=== PATIENT | female | born 1990 | race Caucasian/White ===

== ENCOUNTER 2016-07-02 19:18 | Emergency (ER) | payer OTHER ==
[~2016-07-02] VITALS: Ht 167.6 cm; Wt 103.2 kg
[~2016-07-02 19:18] MED LIST: IBUP800T23 PO; Z.0.BCPILL PO
[2016-07-02 19:38] VITALS: BP 130/77; PULSE 114; RESP 22; TEMP 99.5; O2SAT 98
[2016-07-02] MEDS ORDERED: CELE20TA PO (22:32)
[2016-07-02] MEDS ORDERED: SPRI28TA PO (22:32)
[2016-07-02 22:33] VITALS: BP 128/78; PULSE 101; RESP 18; TEMP 99.5; O2SAT 97
--- NOTE | 2016-07-02 22:44 | PD ---
HPI Chief Complaint: Cold / Flu Symptoms Time Seen by Provider: 22:37 Travel History International Travel<30 days: No Contact w/Intl Traveler<30days: No Traveled to known affect area: No History of Present Illness HPI This 26-year-old female says she is having cough and congestion. She says she aches all over and just feels bad in general. She did not get a flu shot this year she had a persistent cough. She finds it hard to breathe at times. She has no history of asthma. She does not smoke cigarettes [facility] Past Medical History Diminished Hearing: No Immunizations Current: Yes (UTD) Tetanus Vaccination: < 5 Years Influenza Vaccination: No ?: Not LMP: TWO MONTHS AGO- ONCE EVERY THREE MONTHS : 1 Para: 1 Past Surgical History Tympanostomy Tube: Yes Social History Alcohol Use: No (DENIES) Tobacco Use: No Substance Use: No Allergies-Medications (Allergen,Severity, Reaction): Coded Allergies: Zithromax (Verified Allergy, Severe, Rash, 07/02/16) Reported Meds & Prescriptions Reported Meds & Active Scripts Active Reported Sprintec 28 (Norgestimate-Ethinyl Estradiol) 0.25-35 mg-Mcg Tab 1 Tab PO DAILY Celexa (Citalopram Hydrobromide) 20 Mg Tab 20 Mg PO DAILY Review of Systems General / Constitutional: Positive: Fever, Chills Eyes: No: Diploplia, Blurred Vision HENT: Positive: Sore Throat, Rhinitis, No: Headaches Gastrointestinal: No: Nausea, Vomiting Genitourinary: No: Urgency Skin: No Rash, No Itching Physical Exam Narrative GENERAL: [-] Well-developed female SKIN: Warm and dry. HEAD: Atraumatic. Normocephalic. EYES: Pupils equal and round. No scleral icterus. No injection or drainage. ENT: No nasal bleeding or discharge. Mucous membranes pink and moist. Posterior pharynx is erythematous with a small amount of exudate NECK: Trachea midline. No JVD. CARDIOVASCULAR: Regular rate and rhythm. No murmur appreciated. RESPIRATORY: No accessory muscle use. Clear to auscultation. Breath sounds equal bilaterally. GASTROINTESTINAL: Abdomen soft, non-tender, nondistended. Hepatic and splenic margins not palpable. MUSCULOSKELETAL: No obvious deformities. No clubbing. No cyanosis. No edema. NEUROLOGICAL: Awake and alert. No obvious cranial nerve deficits. Motor grossly within normal limits. Normal speech. PSYCHIATRIC: Appropriate mood and affect; insight and judgment normal. Data Data Last Documented VS Vital Signs Date Time Temp Pulse Resp B/P Pulse Ox O2 Delivery O2 Flow Rate FiO2 07/02/16 22:33 99.5 101 18 128/78 97 Room Air Orders Influenzae A/B Antigen (07/02/16 22:41) Chest, Single Ap (07/02/16 22:41) Acetaminophen (Tylenol) (07/02/16 22:45) MDM Medical Decision Making Medical Screen Exam Complete: Yes Emergency Medical Condition: Yes Medical Record Reviewed: Yes Differential Diagnosis Differential includes pharyngitis, pneumonia, influenza Narrative Course Tests for influenza is negative. Chest x-ray negative. I'm been a put this patient on amoxicillin for her pharyngitis Diagnosis Primary Impression: Pharyngitis Qualified Code: J02.9 - Pharyngitis, unspecified etiology Departure Forms: Tests/Procedures, Work Release Enter return to work date: Jul 06, 2016 Additional Instructions: TAKE TYLENOL OR MOTRIN FOR FEVER Scripts Fluconazole (Diflucan)150 Mg [id number] Mg PO ONCE #1 TAB Ref 0 Prov:Mitch Aguero MD 07/02/16 Benzonatate (Tessalon Perles)100 Mg [id number] Mg PO TID PRN (COUGH) #15 CAP Ref 0 Prov:Mitch Aguero MD 07/02/16 Amoxicillin 500 Mg [id number] Mg PO TID #21 TAB Ref 0 Prov:Mitch Aguero MD 07/02/16 Disposition: 01 DISCHARGE HOME Condition: Stable Mitch Aguero MD Jul 02, 2016 22:44
[2016-07-02] MEDS ORDERED: ACETAMINOPHEN 500 MG CPLT PO ONE (22:45)
--- NOTE | 2016-07-02 22:59 | RADHPO ---
EXAM DATE/TIME: 07/02/2016 22:50 [place] COMPARISON: No previous studies available for comparison. INDICATIONS : Cough, fever and congestion. MEDICAL HISTORY : None. SURGICAL HISTORY : None. ENCOUNTER: Initial ACUITY: 3 days PAIN SCORE: 6/10 LOCATION: Bilateral chest FINDINGS: A single view of the chest demonstrates the lungs to be symmetrically aerated without evidence of mas s, infiltrate or effusion. The cardiomediastinal contours are unremarkable. Osseous structures are intact. CONCLUSION: Normal examination. Vic Mohamud MD on July 02, 2016 at 22:58 Board Certified Radiologist. This report was verified electronically.
[2016-07-02] MEDS ORDERED: AMOX500T PO (23:34)
[2016-07-02] MEDS ORDERED: BENZ100 PO (23:34)
[2016-07-02] MEDS ORDERED: DIFL150T PO (23:34)
[2016-07-02 23:40] VITALS: BP 124/74; PULSE 94; RESP 18; O2SAT 97
[2016-07-02] MEDS ORDERED: AMOXICILLIN (TRIHYDRATE) 500 MG CAP PO ONE (23:45)
== END 2016-07-02 23:47 | disposition home or self-care (01) ==
LOC: PHED 19:18
DX: J02.9 Acute pharyngitis, unspecified (principal)
CPT/HCPCS: 71010; 87804; 99283